=== PATIENT | female | born 1995 | race Caucasian/White ===

== ENCOUNTER 2018-07-23 20:51 | Inpatient (IN) | payer OTHER ==
[2018-07-23 22:47] LABS: ADD UMIC NO; UR ASCORBIC ACID NEGATIVE (NEGATIVE); UR BILIRUBIN (Dip) NEGATIVE (NEGATIVE); UR BLOOD (Dip) NEGATIVE (NEGATIVE); UR CALCIUM OXALATE CRYSTAL MANY /HPF (NONE SEEN); UR CLARITY SLIGHTLY CLOUDY (CLEAR); UR COLOR YELLOW (YELLOW); UR GLUCOSE (Dip) NEGATIVE (NEGATIVE); UR KETONES (Dip) NEGATIVE (NEGATIVE); UR LEUKOCYTE ESTERASE (Dip) NEGATIVE Leu/ul (NEGATIVE); UR MUCUS FEW /HPF (NONE SEEN); UR NITRITE (Dip) NEGATIVE (NEGATIVE); UR RBC 2 /HPF (0-5); UR SPECIFIC GRAVITY (Dip) 1.025 (1.003-1.030); UR SQUAMOUS EPITHELIAL CELL FEW /HPF (FEW); UR TOTAL PROTEIN (Dip) NEGATIVE (NEGATIVE); UR UROBILINOGEN (Dip) NEGATIVE (NEGATIVE); UR WBC 3 /HPF (0-5)
[2018-07-24] MEDS ORDERED: AL HYDROX/MG HYDROX/SIMETH 30 ML CUP PO
[2018-07-24 00:59] LABS: ADD MAN DIFF? NO
[2018-07-24 01:03] LABS: BASOPHILS % 0.2 % (0.0-2.0); EOSINOPHILS # 0.1 10^3/ul (0.0-0.5); EOSINOPHILS % 0.8 % (0.0-7.0); HEMATOCRIT 34.6 % (37.0-47.0); HEMOGLOBIN 11.6 g/dl (12.0-16.0); LYMPHOCYTES # 1.6 10^3/ul (0.8-2.9); LYMPHOCYTES % 12.3 % (15.0-51.0); MEAN CORPUSCULAR HGB CONC 33.5 g/dl (32.0-37.0); MEAN CORPUSCULAR VOLUME 86.5 fl (82.0-101.0); MEAN PLATELET VOLUME 12.4 fl (7.4-10.4); MONOCYTE # 0.8 10^3/ul (0.3-0.9); MONOCYTES % 6.6 % (0.0-11.0); NEUTROPHILS % 79.6 % (39.0-77.0); PLATELET COUNT 150 10^3/UL (140-415); RED CELL DISTRIBUTION WIDTH 13.5 % (11.5-14.5)
[2018-07-24 01:03] LABS: WHITE BLOOD COUNT 12.6 10^3/ul (4.8-10.8)
[2018-07-24] MEDS: LACTATED RINGER'S 1,000 ML IV ×3 (01:05→16:44)
[2018-07-24 01:20] LABS: ALANINE AMINOTRANSFERASE 48 IU/L (13-69); ALBUMIN 3.5 g/dl (3.3-4.9); ALBUMIN/GLOBULIN RATIO 1.02; ALKALINE PHOSPHATASE 87 IU/L (42-121); ANION GAP 17 (8-16); ASPARTATE AMINO TRANSFERASE 48 IU/L (15-46); BILIRUBIN,INDIRECT 0.4 mg/dl (0-1.1); BILIRUBIN,TOTAL 0.4 mg/dl (0.2-1.3); BLOOD UREA NITROGEN 6 mg/dl (7-20); CALCIUM 8.8 mg/dl (8.4-10.2); CARBON DIOXIDE 24 mmol/L (21-31); CHLORIDE 104 mmol/L (97-110); CREATININE 0.46 mg/dl (0.44-1.00); GLUCOSE 102 mg/dl (70-220); POTASSIUM 3.9 mmol/L (3.5-5.1); SODIUM 141 mmol/L (135-144); TOTAL PROTEIN 6.9 g/dl (6.1-8.1)
[2018-07-24 01:24] LABS: INR 0.94; PROTIME 12.7 Sec (11.9-14.9)
[2018-07-24 01:25] LABS: PARTIAL THROMBOPLASTIN TIME 29.7 Sec (25.0-35.0)
[2018-07-24] MEDS ORDERED: ACETAMINOPHEN 325 MG TAB PO (01:30)
[2018-07-24] MEDS: HYDROCODONE/APAP (5/325) TAB PO (01:36)
[2018-07-24] MEDS: LIDOCAINE/MYLANTA 40 ML BTL PO (02:10)
[2018-07-24 03:11] LABS: CREATINE KINASE 27 IU/L (23-200)
[2018-07-24 03:24] LABS: CK INDEX 1.1; TROPONIN-I < 0.012 ng/ml (0.000-0.120)
[2018-07-24 03:26] LABS: AMPHETAMINE/METHAMPHETAMINE Negative (NEGATIVE); BARBITURATES Negative (NEGATIVE); BENZODIAZEPINES Negative (NEGATIVE); CANNABINOIDS Negative (NEGATIVE); COCAINE Negative (NEGATIVE); OPIATES Negative (NEGATIVE)
[2018-07-24 07:33] LABS: ADD MAN DIFF? NO
[2018-07-24 07:42] LABS: BASOPHILS % 0.2 % (0.0-2.0); EOSINOPHILS # 0.1 10^3/ul (0.0-0.5); HEMATOCRIT 31.7 % (37.0-47.0); HEMOGLOBIN 10.2 g/dl (12.0-16.0); LYMPHOCYTES # 1.8 10^3/ul (0.8-2.9); LYMPHOCYTES % 17.7 % (15.0-51.0); MEAN CORPUSCULAR HEMOGLOBIN 27.8 pg (29.0-33.0); MEAN CORPUSCULAR HGB CONC 32.2 g/dl (32.0-37.0); MEAN CORPUSCULAR VOLUME 86.4 fl (82.0-101.0); MEAN PLATELET VOLUME 12.4 fl (7.4-10.4); MONOCYTE # 0.8 10^3/ul (0.3-0.9); MONOCYTES % 7.8 % (0.0-11.0); NEUTROPHIL # 7.4 10^3/ul (1.6-7.5); PLATELET COUNT 135 10^3/UL (140-415); RED BLOOD COUNT 3.67 10^6/ul (4.20-5.40); RED CELL DISTRIBUTION WIDTH 13.5 % (11.5-14.5)
[2018-07-24 07:42] LABS: WHITE BLOOD COUNT 10.2 10^3/ul (4.8-10.8)
[2018-07-24 07:54] LABS: CREATINE KINASE 24 IU/L (23-200)
[2018-07-24 08:00] LABS: ALANINE AMINOTRANSFERASE 34 IU/L (13-69); ALBUMIN 3.1 g/dl (3.3-4.9); ALKALINE PHOSPHATASE 68 IU/L (42-121); ANION GAP 13 (8-16); ASPARTATE AMINO TRANSFERASE 35 IU/L (15-46); BILIRUBIN,INDIRECT 0.5 mg/dl (0-1.1); BILIRUBIN,TOTAL 0.5 mg/dl (0.2-1.3); BLOOD UREA NITROGEN 5 mg/dl (7-20); CALCIUM 8.2 mg/dl (8.4-10.2); CARBON DIOXIDE 24 mmol/L (21-31); CHLORIDE 107 mmol/L (97-110); CREATININE 0.47 mg/dl (0.44-1.00); GLUCOSE 90 mg/dl (70-220); MAGNESIUM 1.6 mg/dl (1.7-2.5); PHOSPHORUS 3.6 mg/dl (2.5-4.9); SODIUM 140 mmol/L (135-144); TOTAL PROTEIN 5.9 g/dl (6.1-8.1)
[2018-07-24 08:06] LABS: CK INDEX 1.1; CK-MB 0.27 ng/ml (0.0-2.4); TROPONIN-I < 0.012 ng/ml (0.000-0.120)
[2018-07-24] MEDS: FERROUS SULFATE (EC) 325 MG TAB PO (09:12)
[2018-07-24] MEDS: PRENATAL VITAMIN PO (09:13)
[2018-07-24] MEDS ORDERED: ALBUTEROL 0.083% (NEB) 2.5 MG/3 ML AMP HHN (09:30)
[2018-07-24] MEDS: FAMOTIDINE 20 MG TAB PO (10:33)
[2018-07-24] MEDS: MAGNESIUM OXIDE 400 MG TAB PO (10:33)
[2018-07-24] MEDS: ACETAMINOPHEN 325 MG TAB PO ×2 (10:45→16:43)
[2018-07-24 13:01] LABS: TROPONIN-I < 0.012 ng/ml (0.000-0.120)
== END 2018-07-24 20:30 | disposition home or self-care (01) | DRG 781 ==
LOC: OBT 20:51 → L-D 07-24 00:02 → OBT 23:53 → L-D 23:53
DX: O26.892 Other specified pregnancy related conditions, second trimester (principal); Z3A.26 26 weeks gestation of pregnancy; R07.9 Chest pain, unspecified; R06.02 Shortness of breath; O13.2 Gestational [pregnancy-induced] hypertension without significant proteinuria, second trimester
CPT/HCPCS: 76815; 76817; 76818; 80053; 80307; 81001; 81003; 82550; 82553; 83735; 84100; 84484; 84560; 85025; 85610; 85730; 86850; 86900; 86901; 93005; 93306; 93970

== ENCOUNTER 2018-10-26 06:46 | Inpatient (IN) | payer OTHER ==
[2018-10-26] MEDS ORDERED: CARBOPROST 250 MCG INJ IM (08:00)
[2018-10-26] MEDS ORDERED: METHYLERGONOVINE 0.2 MG INJ IM (08:00)
[2018-10-26] MEDS ORDERED: OXYTOCIN 30 UNITS/LR 500 ML IV ×2 (08:00)
[2018-10-26] MEDS ORDERED: MISOPROSTOL 200 MCG TAB PR (08:00)
[2018-10-26] MEDS ORDERED: IBUPROFEN 600 MG TAB PO (08:00)
[2018-10-26 08:20] LABS: ADD MAN DIFF? NO
[2018-10-26 08:30] LABS: ADD UMIC YES; UR ASCORBIC ACID NEGATIVE (NEGATIVE); UR BACTERIA FEW /HPF (NONE SEEN); UR BILIRUBIN (Dip) NEGATIVE (NEGATIVE); UR BLOOD (Dip) 2+ mg/dL (NEGATIVE); UR CLARITY CLEAR (CLEAR); UR COLOR YELLOW (YELLOW); UR GLUCOSE (Dip) NEGATIVE (NEGATIVE); UR KETONES (Dip) TRACE mg/dL (NEGATIVE); UR LEUKOCYTE ESTERASE (Dip) NEGATIVE Leu/ul (NEGATIVE); UR MUCUS FEW /HPF (NONE SEEN); UR NITRITE (Dip) NEGATIVE (NEGATIVE); UR RBC 1 /HPF (0-5); UR SPECIFIC GRAVITY (Dip) 1.025 (1.003-1.030); UR SQUAMOUS EPITHELIAL CELL FEW /HPF (FEW); UR TOTAL PROTEIN (Dip) NEGATIVE (NEGATIVE); UR UROBILINOGEN (Dip) NEGATIVE (NEGATIVE); UR WBC 4 /HPF (0-5)
[2018-10-26 08:34] LABS: BASOPHILS % 0.2 % (0.0-2.0); EOSINOPHILS # 0.1 10^3/ul (0.0-0.5); EOSINOPHILS % 1.2 % (0.0-7.0); HEMATOCRIT 36.9 % (37.0-47.0); HEMOGLOBIN 12.3 g/dl (12.0-16.0); LYMPHOCYTES # 2.7 10^3/ul (0.8-2.9); LYMPHOCYTES % 26.2 % (15.0-51.0); MEAN CORPUSCULAR HEMOGLOBIN 27.6 pg (29.0-33.0); MEAN CORPUSCULAR HGB CONC 33.3 g/dl (32.0-37.0); MEAN CORPUSCULAR VOLUME 82.7 fl (82.0-101.0); MEAN PLATELET VOLUME 12.6 fl (7.4-10.4); MONOCYTE # 0.6 10^3/ul (0.3-0.9); MONOCYTES % 5.7 % (0.0-11.0); NEUTROPHIL # 6.8 10^3/ul (1.6-7.5); NEUTROPHILS % 66.4 % (39.0-77.0); PLATELET COUNT 173 10^3/UL (140-415); RED BLOOD COUNT 4.46 10^6/ul (4.20-5.40); RED CELL DISTRIBUTION WIDTH 13.8 % (11.5-14.5)
[2018-10-26 08:34] LABS: WHITE BLOOD COUNT 10.2 10^3/ul (4.8-10.8)
[2018-10-26] MEDS: LACTATED RINGER'S 1,000 ML IV ×3 (08:36→19:37)
[2018-10-26 08:48] LABS: INR 0.98; PROTIME 13.1 Sec (11.9-14.9)
[2018-10-26 08:49] LABS: PARTIAL THROMBOPLASTIN TIME 29.2 Sec (23.0-35.0)
[2018-10-26 08:53] LABS: ALANINE AMINOTRANSFERASE 28 IU/L (13-69); ALBUMIN 3.6 g/dl (3.3-4.9); ALKALINE PHOSPHATASE 227 IU/L (42-121); ANION GAP 11 (5-13); ASPARTATE AMINO TRANSFERASE 41 IU/L (15-46); BILIRUBIN,INDIRECT 0.6 mg/dl (0-1.1); BILIRUBIN,TOTAL 0.6 mg/dl (0.2-1.3); BLOOD UREA NITROGEN 10 mg/dl (7-20); CALCIUM 9.1 mg/dl (8.4-10.2); CARBON DIOXIDE 21 mmol/L (21-31); CHLORIDE 108 mmol/L (97-110); CREATININE 0.47 mg/dl (0.44-1.00); Estimated GFR > 60 mL/min (>60); GLUCOSE 80 mg/dl (70-220); SODIUM 140 mmol/L (135-144); TOTAL PROTEIN 6.9 g/dl (6.1-8.1); URIC ACID 5.8 mg/dl (3.1-7.9)
[2018-10-26 08:54] LABS: ALBUMIN/GLOBULIN RATIO 1.09
[2018-10-26] MEDS: OXYTOCIN 30 UNITS/LR 500 ML IV (19:38)
[2018-10-26 22:01] LABS: RAPID PLASMA REAGIN NONREACTIVE (NR)
[2018-10-27] MEDS: BUTORPHANOL 2 MG INJ IV ×2 (01:25→06:40)
[2018-10-27] MEDS: LACTATED RINGER'S 1,000 ML IV ×5 (02:21→16:10)
[2018-10-27] MEDS ORDERED: ROPIVACAINE 0.5 % 30 ML VIAL (07:00)
[2018-10-27] MEDS ORDERED: ONDANSETRON 4 MG INJ IV (08:30)
[2018-10-27] MEDS ORDERED: KETOROLAC 30 MG INJ IV (08:30)
[2018-10-27] MEDS ORDERED: NALOXONE (0.4 MG/ML) INJ IV (08:30)
[2018-10-27] MEDS ORDERED: ZOLPIDEM 5 MG TAB PO ×2 (08:30→21:30)
[2018-10-27] MEDS ORDERED: HYDROmorphONE 0.5 MG/0.5 ML SYG IV ×2 (08:30)
[2018-10-27] MEDS ORDERED: DIPHENHYDRAMINE 50 MG INJ IV (08:30)
[2018-10-27] MEDS: FENTAnyl 2MCG/ML-ROPIV 0.2% 100 ML BAG EPI (17:44)
[2018-10-27] MEDS ORDERED: LIDOCAINE 1% (MPF) 30 ML INJ (18:53)
[2018-10-27] MEDS: MINERAL OIL LIGHT 10 ML VIAL TOP (19:05)
[2018-10-27] MEDS: LIDOCAINE 1% (MPF) 30 ML INJ INJ (19:05)
[2018-10-27] MEDS: OXYTOCIN 30 UNITS/LR 500 ML IV (19:05)
[2018-10-27] MEDS: GENTAMICIN 120 MG/NS (PMX) 100 ML IVPB (19:18)
[2018-10-27] MEDS: AMPICILLIN 2 GM/NS (PMX) 100 ML IVPB (19:19)
[2018-10-27 20:23] LABS: AMPHETAMINE/METHAMPHETAMINE Negative (NEGATIVE); BARBITURATES Negative (NEGATIVE); BENZODIAZEPINES Negative (NEGATIVE); CANNABINOIDS Negative (NEGATIVE); COCAINE Negative (NEGATIVE); OPIATES Negative (NEGATIVE)
[2018-10-27] MEDS: LACTATED RINGER'S 1,000 ML IV* (21:15)
[2018-10-27] MEDS: ACETAMINOPHEN 325 MG TAB PO (21:30)
[2018-10-27] MEDS ORDERED: MISOPROSTOL 200 MCG TAB PR (21:30)
[2018-10-27] MEDS ORDERED: METHYLERGONOVINE 0.2 MG INJ IM (21:30)
[2018-10-27] MEDS ORDERED: DIBUCAINE 1% 30 GM OINT TOP (21:30)
[2018-10-27] MEDS ORDERED: HYDROCODONE/APAP (5/325) TAB PO (21:30)
[2018-10-27] MEDS ORDERED: OXYTOCIN 30 UNITS/LR 500 ML IV (21:30)
[2018-10-27] MEDS ORDERED: CARBOPROST 250 MCG INJ IM (21:30)
[2018-10-27] MEDS: ACETAMINOPHEN 1000MG/100ML IV 100 ML IVPB (21:50)
[2018-10-27] MEDS: LANOLIN 7 GM TUBE TOP (22:04)
[2018-10-27] MEDS: BENZOCAINE 20% 56 ML SPRAY TOP (22:04)
[2018-10-27] MEDS: WITCH HAZEL/GLYCERIN PAD PR (22:04)
[2018-10-27 22:12] LABS: HEPATITIS B SURFACE ANTIGEN NEGATIVE (NEGATIVE)
[2018-10-28] MEDS: AMPICILLIN/SULB 3 GM/NS (PMX) 100 ML IVPB ×4 (00:08→17:44)
[2018-10-28] MEDS: IBUPROFEN 600 MG TAB PO ×4 (00:09→17:41)
[2018-10-28] MEDS: ACETAMINOPHEN 325 MG TAB PO ×6 (01:30→21:30)
[2018-10-28] MEDS ORDERED: GENTAMICIN 80 MG/NS (PMX) 50 ML IVPB (02:00)
[2018-10-28] MEDS: LACTATED RINGER'S 1,000 ML IV* ×3 (07:08→21:15)
[2018-10-28 08:09] LABS: ADD MAN DIFF? NO
[2018-10-28 08:11] LABS: BASOPHILS % 0.2 % (0.0-2.0); EOSINOPHILS # 0.2 10^3/ul (0.0-0.5); EOSINOPHILS % 1.1 % (0.0-7.0); HEMATOCRIT 28.3 % (37.0-47.0); HEMOGLOBIN 9.5 g/dl (12.0-16.0); LYMPHOCYTES # 2.8 10^3/ul (0.8-2.9); LYMPHOCYTES % 19.3 % (15.0-51.0); MEAN CORPUSCULAR HEMOGLOBIN 28.2 pg (29.0-33.0); MEAN CORPUSCULAR HGB CONC 33.6 g/dl (32.0-37.0); MEAN PLATELET VOLUME 12.3 fl (7.4-10.4); MONOCYTE # 1.1 10^3/ul (0.3-0.9); MONOCYTES % 7.5 % (0.0-11.0); NEUTROPHIL # 10.2 10^3/ul (1.6-7.5); NEUTROPHILS % 71.3 % (39.0-77.0); PLATELET COUNT 130 10^3/UL (140-415); RED BLOOD COUNT 3.37 10^6/ul (4.20-5.40); RED CELL DISTRIBUTION WIDTH 13.9 % (11.5-14.5)
[2018-10-28 08:11] LABS: WHITE BLOOD COUNT 14.4 10^3/ul (4.8-10.8)
[2018-10-28] MEDS: MAGNESIUM HYDROXIDE 30ML CUP PO ×2 (08:35→21:00)
[2018-10-28] MEDS: SENNA/DOCUSATE NA (8.6MG/50MG) TAB PO ×2 (08:35→21:00)
[2018-10-28] MEDS: HYDROCODONE/APAP (5/325) TAB PO (19:33)
[2018-10-29] MEDS: AMPICILLIN/SULB 3 GM/NS (PMX) 100 ML IVPB ×2 (00:09→05:39)
[2018-10-29] MEDS: IBUPROFEN 600 MG TAB PO ×3 (00:09→11:16)
[2018-10-29] MEDS: ACETAMINOPHEN 325 MG TAB PO ×4 (01:30→13:30)
[2018-10-29] MEDS: LACTATED RINGER'S 1,000 ML IV* (05:15)
[2018-10-29 08:42] LABS: ADD MAN DIFF? NO
[2018-10-29 08:46] LABS: BASOPHILS % 0.2 % (0.0-2.0); EOSINOPHILS # 0.2 10^3/ul (0.0-0.5); EOSINOPHILS % 1.9 % (0.0-7.0); HEMATOCRIT 29.6 % (37.0-47.0); HEMOGLOBIN 9.5 g/dl (12.0-16.0); LYMPHOCYTES # 3.2 10^3/ul (0.8-2.9); LYMPHOCYTES % 34.3 % (15.0-51.0); MEAN CORPUSCULAR HEMOGLOBIN 27.4 pg (29.0-33.0); MEAN CORPUSCULAR HGB CONC 32.1 g/dl (32.0-37.0); MEAN CORPUSCULAR VOLUME 85.3 fl (82.0-101.0); MONOCYTE # 0.6 10^3/ul (0.3-0.9); MONOCYTES % 6.6 % (0.0-11.0); NEUTROPHIL # 5.2 10^3/ul (1.6-7.5); NEUTROPHILS % 56.6 % (39.0-77.0); PLATELET COUNT 130 10^3/UL (140-415); RED BLOOD COUNT 3.47 10^6/ul (4.20-5.40); RED CELL DISTRIBUTION WIDTH 14.3 % (11.5-14.5)
[2018-10-29 08:46] LABS: WHITE BLOOD COUNT 9.3 10^3/ul (4.8-10.8)
[2018-10-29] MEDS: SENNA/DOCUSATE NA (8.6MG/50MG) TAB PO (09:00)
[2018-10-29] MEDS: VARICELLA VACCINE LIVE/PF 1,350 UNIT/0.5 ML ML SC* (09:00)
[2018-10-29] MEDS: MAGNESIUM HYDROXIDE 30ML CUP PO (09:00)
[2018-10-29] MEDS: DIPHTH/TET/ACEL PERTUSS (ADULT) 0.5 ML VIAL IM* (09:00)
[2018-10-29] MEDS: MEASLES,MUMPS,RUBELLA VACCINE INJ SC* (09:00)
== END 2018-10-29 17:46 | disposition home or self-care (01) | DRG 807 ==
LOC: OBT 06:46 → L-D 06:46 → PP1 10-27 21:07 → OBT 07:36 → L-D 07:30
PROC: 10E0XZZ Delivery of Products of Conception, External Approach (ICD-10-PCS; principal; 2018-10-27)
PROC: 0HQ9XZZ Repair Perineum Skin, External Approach (ICD-10-PCS; 2018-10-27)
DX: O69.81X0 Labor and delivery complicated by cord around neck, without compression, not applicable or unspecified (principal); Z37.0 Single live birth; O70.0 First degree perineal laceration during delivery; Z3A.40 40 weeks gestation of pregnancy
CPT/HCPCS: 62319; 76815; 80053; 80307; 81001; 84560; 85025; 85610; 85730; 86592; 86850; 86900; 86901; 87040; 87086; 87340; 90716